=== PATIENT | male | born 1965 | race American Indian/Alaskan Native ===

== ENCOUNTER 2016-10-22 15:32 | Emergency (ER) | payer BC ==
[2016-10-22] MEDS ORDERED: D50W (25GM) Syringe IV ONE (16:06)
[2016-10-22 16:48] LABS: Basophils % (Auto) 0.4 % (0.0-1.8); Eosinophils % (Auto) 0.7 % (0.0-4.3); Hematocrit 40.6 % (35.5-45.6); Hemoglobin 13.1 gm/dl (11.8-15.2); Mean Corpuscular HGB Conc 32 % (32-34); Mean Corpuscular Hemoglobin 24 pg (28-32); Mean Corpuscular Volume 76 fl (84-94); Platelet Count 164 K/mm3 (140-440); Red Blood Count 5.37 M/mm3 (3.65-5.03); Red Cell Distribution Width 14.2 % (13.2-15.2); White Blood Count 12.2 K/mm3 (4.5-11.0)
[2016-10-22] MEDS ORDERED: NACL 0.9% 1000 ML 1,000 ML IV ONE (16:54)
[2016-10-22 17:07] LABS: Alanine Aminotransferase 102 units/L (7-56); Albumin 3.7 g/dL (3.9-5); Albumin/Globulin Ratio 0.9 %; Alkaline Phosphatase 544 units/L (35-129); Anion Gap 17 mmol/L; Blood Urea Nitrogen 13 mg/dL (9-20); Calcium 8.9 mg/dL (8.4-10.2); Carbon Dioxide 27 mmol/L (22-30); Chloride 99.5 mmol/L (98-107); Glucose 123 mg/dL (75-100); Sodium 139 mmol/L (137-145); Total Protein 7.6 g/dL (6.3-8.2)
[2016-10-22 17:42] LABS: Bilirubin,Urine NEG (Negative); Blood,Urine NEG (Negative); Ketones,Urine NEG (Negative); Leukocyte Esterase,Urine NEG (Negative); Mucus,Urine FEW /HPF; Nitrite,Urine NEG (Negative); Protein,Urine <15 mg/dL mg/dL (Negative); Urobilinogen,Urine < 2.0 mg/dL (<2.0); WBC,Urine < 1.0 /HPF (0.0-6.0)
--- NOTE | 2016-10-22 17:59 | Cat Scan Report ---
FINAL REPORT EXAM: CT HEAD/BRAIN WO CON HISTORY: ams TECHNIQUE: CT examination of the head without IV contrast PRIORS: None. FINDINGS: Well-defined smoothly marginated hypodensity is suggestive of chronic lacunar infarct in the medial left basal ganglia extending superiorly into the left lees radiata white matter and left caudate body. No acute air-fluid level visualized in the included air-filled sinuses. Bone windows demonstrate no acute fracture. The brain is without definite CT evidence of mass, mass effect, hemorrhage, or acute infarct. There is no extra-axial intracranial bleed, brain bleed, or midline shift. The ventricles and sulci are age-appropriate. IMPRESSION: No definite CT evidence of acute CVA, intracranial bleed, or brain mass Chronic appearing small likely lacunar infarct on the left side. Follow-up brain MRI may help further characterize in the appropriate clinical setting.
--- NOTE | 2016-10-22 18:44 | Emergency Department Report ---
HPI - General Chief Complaint: Hypoglycemia Time Seen by Provider: 10/22/16 16:05 - HPI HPI: 51 year old male with history of diabetes on insulin, took insulin before lunch was waiting on his sister to drive to go eat, and then he felt lightheaded, passed out, and glucose was found to be 19, ems gave him glucose, and was brought to er. In ER, he denies any complaints and was alert and oriented. ED Past Medical Hx - Past Medical History Hx Hypertension: Yes Hx Diabetes: Yes - Surgical History Additional Surgical History: Bilateral knee surgery - Social History Smoking Status: Never Smoker Substance Use Type: Alcohol - Medications Home Medications: Home Medications Medication Instructions Recorded Confirmed Last Taken Type ALBUTEROL Inhaler [ProAir HFA 2 puff PO Q4H PRN 10/22/16 10/22/16 Unknown History Inhaler] Canagliflozin [Invokana] 1,000 mg PO QDAY 10/22/16 10/22/16 Unknown History Duloxetine HCl [Cymbalta] 60 mg PO BID 10/22/16 10/22/16 Unknown History Gabapentin [Neurontin] 600 mg PO TID 10/22/16 10/22/16 Unknown History Insulin Aspart [NovoLOG Flexpen] 44 units SC QAM 10/22/16 10/22/16 Unknown History Insulin Detemir [Levemir Flextouch] 44 units SC QHS 10/22/16 10/22/16 Unknown History Liraglutide [Saxenda] 0.5 ml PO QDAY 10/22/16 10/22/16 Unknown History Losartan [Cozaar] 25 mg PO QDAY 10/22/16 10/22/16 Unknown History Pantoprazole [Protonix TAB] 40 mg PO QDAY 10/22/16 10/22/16 Unknown History Polyethylene Glycol 3350 [Miralax 1 pack PO PRN PRN 10/22/16 10/22/16 Unknown History 3350] Rosuvastatin (Nf) [Crestor] 20 mg PO QDAY 10/22/16 10/22/16 Unknown History ED Review of Systems ROS: Stated complaint: BLOOD SUGAR LOW Other details as noted in HPI Comment: All other systems reviewed and negative Constitutional: no symptoms reported Eyes: denies: eye pain, eye discharge, vision change ENT: denies: ear pain, throat pain Psychiatric: denies: anxiety, depression Hematological/Lymphatic: denies: easy bleeding, easy bruising Physical Exam - Physical Exam Vital Signs: Vital Signs 10/22/16 10/22/16 10/22/16 15:47 16:36 16:45 Temperature 97.6 F Pulse Rate 87 82 Respiratory 18 13 10 L Rate Blood Pressure 186/89 143/85 Blood Pressure [Right] O2 Sat by Pulse 100 99 98 Oximetry 10/22/16 10/22/16 10/22/16 16:53 16:58 17:00 Temperature Pulse Rate 80 88 Respiratory 16 16 12 Rate Blood Pressure 130/82 Blood Pressure 143/85 [Right] O2 Sat by Pulse 100 100 100 Oximetry 10/22/16 10/22/16 10/22/16 17:44 17:46 18:00 Temperature Pulse Rate 84 Respiratory 13 Rate Blood Pressure 130/82 143/83 151/86 Blood Pressure [Right] O2 Sat by Pulse 100 100 100 Oximetry 10/22/16 10/22/16 18:15 18:30 Temperature Pulse Rate 82 79 Respiratory 15 10 L Rate Blood Pressure 151/94 158/91 Blood Pressure [Right] O2 Sat by Pulse 100 99 Oximetry Physical Exam: - Physical Exam - General Limitations: No Limitations General appearance: alert, in no apparent distress, - Head Head exam: Present: atraumatic, normocephalic - Eye Eye exam: Present: normal appearance - ENT ENT exam: Present: mucous membranes moist - Neck Neck exam: Present: normal inspection - Respiratory Respiratory exam: Present: normal lung sounds bilaterally. Absent: respiratory distress - Cardiovascular Cardiovascular Exam: Present: normal rhythm, normal rate. Absent: systolic murmur, diastolic murmur, rubs, gallop - GI/Abdominal GI/Abdominal exam: Present: soft, normal bowel sounds - Extremities Exam Extremities exam: Present: normal inspection - Back Exam Back exam: Present: normal inspection - Neurological Exam Neurological exam: Present: alert, oriented X3 - Psychiatric Psychiatric exam: normal affect and mood but denies suicidal ideations, denies homicidal ideation - Skin Skin exam: Present: warm, dry, intact, normal color. Absent: rash ED Course Vital Signs 10/22/16 10/22/16 10/22/16 15:47 16:36 16:45 Temperature 97.6 F Pulse Rate 87 82 Respiratory 18 13 10 L Rate Blood Pressure 186/89 143/85 Blood Pressure [Right] O2 Sat by Pulse 100 99 98 Oximetry 10/22/16 10/22/16 10/22/16 16:53 16:58 17:00 Temperature Pulse Rate 80 88 Respiratory 16 16 12 Rate Blood Pressure 130/82 Blood Pressure 143/85 [Right] O2 Sat by Pulse 100 100 100 Oximetry 10/22/16 10/22/16 10/22/16 17:44 17:46 18:00 Temperature Pulse Rate 84 Respiratory 13 Rate Blood Pressure 130/82 143/83 151/86 Blood Pressure [Right] O2 Sat by Pulse 100 100 100 Oximetry 10/22/16 10/22/16 18:15 18:30 Temperature Pulse Rate 82 79 Respiratory 15 10 L Rate Blood Pressure 151/94 158/91 Blood Pressure [Right] O2 Sat by Pulse 100 99 Oximetry - Reevaluation(s) Reevaluation #1: 10/22/16 19:11 CT findings discussed with patient he admits to previous stroke. ED Medical Decision Making - Lab Data Result diagrams: 10/22/16 16:25 10/22/16 16:25 Critical care attestation.: If time is entered above; I have spent that time in minutes in the direct care of this critically ill patient, excluding procedure time. ED Disposition Clinical Impression: Hypoglycemia Disposition: DC-01 TO HOME OR SELFCARE Is pt being admited?: No Does the pt Need Aspirin: No Condition: Stable Instructions: Diabetic Hypoglycemia (ED) Referrals: PRIMARY CARE, [Primary Care Provider] - 3-5 Days
[2016-10-22 19:08] VITALS: BP 164/96
--- NOTE | 2016-10-23 07:45 | XRay Report ---
PORTABLE CHEST INDICATION: Chest pain. COMPARISON: None similar at this institution. FINDINGS: Portable, frontal chest radiograph demonstrates slight exaggerated cardiomediastinal silhouette and somewhat crowded lung markings centrally. Clear remainder lungs without pleural effusions or CHF. Intact bones. CONCLUSION: No significant acute chest process, as described. Thank you for the opportunity to participate in this patient's care.
== END 2016-10-22 19:09 | disposition home or self-care (01) ==
LOC: ED 15:32
DX: E11.649 Type 2 diabetes mellitus with hypoglycemia without coma (principal); I10 Essential (primary) hypertension; Z79.4 Long term (current) use of insulin
CPT/HCPCS: 36415; 70450; 71010; 80053; 81001; 82962; 83690; 85025; 96360; 99285; J7030